=== PATIENT | male | born 1970 | race Caucasian/White ===

== ENCOUNTER 2017-03-28 14:57 | Emergency (ER) | payer OTHER ==
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
[~2017-03-28 14:57] MED LIST: ACETAMINOPHEN PR; ALBUTEROL17 GM INH; AMITRYPTYLINE PO; ASPIRIN PO; BACITRACIN15 GM TP; BACLOFEN10 MG PO; BACTRIM DS TABL1 TA1 PO; BACTRIM DS TABL1 TAB PO; BACTROBAN22 GM TOP; CARAFATE1 GM PO; CELEXA; CITRATE OF MAG296 M1 PO; COMPLETE M9 MG/15 ML PO; DICLOFENAC PO; FAMOTIDINE PO; FLEXERIL10 MG PO; HYDROCODON-ACE1 EAC9 PO; IBUPROFEN800 MG PO; KEFLEX500 M2 PO; LORTAB 5-325 M1 EACH PO; LORTAB 5/500 TA1 TA1 PO; LORTAB 7.5-5001 TAB; MAALOX SUSPENSI30 ML PO; MEDROL DOSEPAK4 MG PO; MEDROL4 MG/DOSE- PO; MILK OF MAGNESIA PO; MIRALAX17 GM DOB; MOBIC15 MG PO; MOTRIN600 M1 PO; NAPROSYN500 MG PO; NEURONTIN800 MG PO; NEXIUM; NEXIUM PO; NO MEDICATIONS; NORFLEX100 M1 PO; PERCOCET 10/3251 TAB PO; PERCOCET 7.5-31 EACH PO; PHENERGAN PO; PROZAC PO; ROBITUSSIN A-C S5 ML PO; STOMACH MED; TESTOSTERONE SHOT; THIAMINE HCL100 MG PO; TRAZODONE PO; TYLENOL #3 PO; ULTRAM PO; VICODIN 5/1 TAB 5/50 PO; VICODIN PO; VITAMIN B12 COMPLEX; VOLTAREN75 MG PO; WELLBUTRIN XL PO; ZITHROMAX PO
[2017-03-28] MEDS ORDERED: NEURONTIN (15:04)
== END 2017-03-28 16:28 | disposition home or self-care (01) ==
LOC: SED 14:57
DX: S50.11XA Contusion of right forearm, initial encounter (principal); S20.211A Contusion of right front wall of thorax, initial encounter; S90.411A Abrasion, right great toe, initial encounter; K21.9 Gastro-esophageal reflux disease without esophagitis; Z79.899 Other long term (current) drug therapy; W22.8XXA Striking against or struck by other objects, initial encounter; Y92.410 Unspecified street and highway as the place of occurrence of the external cause
CPT/HCPCS: 71101; 73090; 73660; 96372; 99283; J1885